=== PATIENT | male | born 1995 | race African-American/Black ===

== ENCOUNTER 2016-09-01 08:06 | Emergency (ER) | payer SELFPAY ==
[~2016-09-01] VITALS: Ht 188 cm; Wt 84.0 kg
[2016-09-01 10:00] VITALS: BP 120/75
== END 2016-09-01 12:37 | disposition home or self-care (01) ==
LOC: ER 11:05
DX: J02.0 Streptococcal pharyngitis (principal)
CPT/HCPCS: 99283